=== PATIENT | female | born 1955 | race Caucasian/White ===

== ENCOUNTER 2017-05-08 20:21 | Emergency (ER) | payer BC ==
[2017-05-08 20:30] VITALS: BP 132/69
[2017-05-08] MEDS ORDERED: DOXYcycline CAP(*) 100 MG PO ONE (21:25)
--- NOTE | 2017-05-08 21:41 | UC ---
Skin Complaint HPI - HPI Summary HPI Summary: 3 DAYS OF OVERALL MALAISE AND FATIGUE. NO DIALLO OR JOINT PAIN OR MUSCLE ACHES. TODAY NOTICED A RED BULLSEYE RASH RIGHT SIDE UNDER ARM. NOTED TO HAVE FEVER HERE - 100.5. CURRENTLY ON CHEMO FOR OVARIAN CANCER FOLLOWED BY DR. MAK IN [place]. - History of Current Complaint Chief Complaint: UCSkin Time Seen by Provider: 05/08/17 21:13 Stated Complaint: TICK BITE Hx Obtained From: Patient Onset/Duration: Gradual Onset, Lasting Days, Still Present Timing: Constant Onset Severity: Moderate Current Severity: Moderate Pain Intensity: 0 Pain Scale Used: 0-10 Numeric Location: Discrete - RIGHT SIDE Character: Redness Aggravating: Nothing Alleviating: Nothing Associated Signs & Symptoms: Positive: Fever, Rash. Negative: Nausea, Vomiting , Syncope - Allergy/Home Medications Allergies/Adverse Reactions: Allergies Allergy/AdvReac Type Severity Reaction Status Date / Time No Known Allergies Allergy Verified 08/17/16 10:40 Home Medications: Home Medications Docusate Sodium [Colace] 100 mg PO 05/08/17 [History] Magnesium 500 mg PO 05/08/17 [History] Pyridoxine HCl [Vitamin B-6] 25 mg PO 05/08/17 [History] Review of Systems Constitutional: Fever, Fatigue Respiratory: Negative Cardiovascular: Negative Gastrointestinal: Negative Neurological: Negative All Other Systems Reviewed And Are Negative: Yes PMH/Surg Hx/FS Hx/Imm Hx Other Cancer History: OVARIAN CANCER - Surgical History Surgical History: Yes Surgery Procedure, Year, and Place: hysterectomy - Family History Known Family History: Positive: Hypertension - Social History Alcohol Use: Weekly Substance Use Type: None Smoking Status (MU): Never Smoked Tobacco Physical Exam Triage Information Reviewed: Yes Appearance: Well-Appearing, No Pain Distress, Well-Nourished Vital Signs: Initial Vital Signs Temp 100.5 F 05/08/17 20:24 Pulse 113 05/08/17 20:24 Resp 18 05/08/17 20:24 BP 132/69 05/08/17 20:24 Pulse Ox 99 05/08/17 20:24 Vital Signs Reviewed: Yes Eyes: Positive: Conjunctiva Clear ENT: Positive: Hearing grossly normal Neck: Positive: Supple Respiratory Exam: Normal Cardiovascular Exam: Normal Abdomen Description: Positive: Soft Musculoskeletal: Positive: No Edema Neurological: Positive: Alert Psychological: Positive: Age Appropriate Behavior Skin: Positive: rashes - 11CM X 10CM TARGET LESION RIGHT SIDE MIDAXILLARY LINE Course/Dx - Diagnoses Provider Diagnoses: LYME DISEASE/ERYTHEMA MIGRANS Discharge - Discharge Plan Condition: Stable Disposition: HOME Prescriptions: Doxycycline (Monohydrate) [Doxycycline Monohydrate] 1 cap PO BID #41 cap Patient Education Materials: Lyme Disease (ED) Referrals: Cece Donovan MD [Primary Care Provider] - If Needed Additional Instructions: LYME DISEASE: You are suspected of having Lyme disease. Further testing may be necessary to confirm the diagnosis. Lyme disease is an infection spread through the bite of a deer tick. Symptoms include rash, fever, fatigue, joint swelling, and aches. Lyme disease can be treated with antibiotics. It is important that you take the entire course of medication. Call the physician if you develop severe headache, stiff neck, paralysis or "drooping" of either side of the face, or a worsening of any other symptom. The majority of patients with early Lyme disease who receive appropriate antibiotic therapy have complete resolution of the signs and symptoms of infection within 20 days and, in one trial, erythema migrans (the rash) and its associated symptoms resolved in a mean of five to six days. Patients who are more systemically ill at the beginning of treatment may take longer to recover. Some patients have mild subjective symptoms, such as headache, musculoskeletal pain, arthralgia, or fatigue, that persist for weeks to months after treatment. These subjective findings often resolve spontaneously, usually within six months , without further antibiotic therapy; they are not due to ongoing active Lyme disease. Almost all patients who have a satisfactory response to antibiotic therapy do well over the bed bug exterminator.
== END 2017-05-08 21:41 | disposition home or self-care (01) ==
LOC: UCEAST 20:21
DX: A69.20 Lyme disease, unspecified (principal); A26.0 Cutaneous erysipeloid
CPT/HCPCS: 99212; A9270-GY; G0463

== ENCOUNTER 2017-11-15 13:56 | Inpatient (IN) | payer BC ==
--- OUTSIDE RECORDS SUMMARY | 2017-11-15 14:24 | XMS REPORT ---
:1955 External Reference #:[id number] Author Organization [facility], Address [address] [address] Phone [phone] Care Team Providers Name Role Phone Hood Vasques M.D. 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 Primary Care Physician Unavailable Payers Type Date Identification Numbers Payment Provider Subscriber Health Maintenance Policy Number: [id number] [facility] [facility] (HMO) Plan PayID: [id number] [address] [place] [address] Problems Description No Information Family History Date Family Member(s) Problem(s) Comments General Breast Cancer mother (age 83), maternal grandmother (age 85) Social History Type Date Description Comments Lives With Spouse Occupation [employer] Cigarette Use 10/24/2017 Never Smoked Cigarettes ETOH Use Occasionally consumes alcohol STD's No STD History Allergies, Adverse Reactions, Alerts Date Description Reaction Status Severity Comments 12/08/2016 Carboplatin Nausea and Vomiting, flushing/warm active Moderate 01/28/2014 NKDA inactive Medications Medication Date Status Form Strength Qnty SIG Indications Ordering Provider Losartan 09/22 Active Tablets 25mg 30tab 1 tab by W [place] s mouth MD Nate Magnesium 02/15 Active Tablets 400mg 60tab 1 by mouth s 2 x a day ANDRADE Velarde Ativan 10/25 Active Tablets 1mg 45tab 1 by mouth W [place] s every 4- MD Nate 6hr as needed nausea/anx iety/insom cale Prochlorperazine 10/22 Active Tablets 10mg 45tab 1 by mouth W [place] Male s every 6 MD Nate hours as needed nausea Alprazolam 09/27 Active Tablets 0.5mg 30tab One PO Q 6 W [place] s hours prn MD Nate anxiety. Zofran 11/15 Active Tablets 8mg 60tab 1 by mouth s every [place], 6-8hr as [employer] needed nausea Valtrex Active Tablets 500mg 42tab qod s Loratadine Active Tablets 10mg qd Stool Softener Active Capsules 100mg bid prn Aleve Active Tablets 220mg 1 bid Vitamin D3 Active Capsules [id number] 11 tab weekly x 12 weeks Multivital Active Tablets 1 qd Citracal Active Tablets ER 600-40-50 1 qd Unknown Calcium+D 24HR 0mg-mg-Un Release it Zantac Active Tablets 150mg 1-2 weekly Doxycycline 05/[address] 100mg 30tab 1 by mouth W [place] Hycl s twice a MD Nate - day 05/30 Benadryl 11/29 Hx Capsules 25mg 1Tabl 2 tablet Chemo et by mouth Patients - the the 08/26 before chemo each cycle and the morning before chemo with the dexamethas one scripted Dexamethasone 11/17 Hx Tablets 4mg 60tab 2 tablets s twice a [place], - day x 2 [employer] 08/26 days, 1 tablet twice a day x 2 days after chemothera py Sancuso 11/02 Hx Patches 3.1mg/24H 1unit place 1 R s patch on [place], - arm 24 [employer] prior to your chemothera py date as directed on week 1&2 off week 3 form completed Hydrocodone-Aceta 01/15 Hx Tablets 5-325mg 20tab 1 by mouth [place] min s every 4-6 MD Nate - hours as 04/21 pain Neulasta 12/17 Hx Solution 6mg/0.6ML 1unit use as Vincent, /2015 s directedKenisha NP - sq 24-48 04/21 hours after chemothera py Ibuprofen 11/27 Hx Tablets 600mg 40tab 1 po q6h W s prn pain MD Nate - 04/21 Vitamin B-6 11/27 Hx Tablets 100mg 1 by mouth Chemo, twice a Patients - day 04/21 Lovenox 10/28 Hx Solution 40mg/0.4M 14uni 1 sq inj. W L ts every day MD Nate - post op 12/06 for Prepopik 09/25 Hx Packet 10-3.5-12 1kit as Yonathan mg-GM-GM directed ANDRADE De - 09/26 Hydrocodone-Aceta 09/25 Hx Tablets 5-325mg 40tab 1-2 by Yonathan, s mouth ANDRADE De - every 4-6 12/16 hours needed pain Nulytely/Flavor 05/17 Hx Solution 420gm 1unit start Yonathan, Packs Rec s bowel prep ANDRADE De - at 1:00 pm 05/22 the before surgery, follow instructio ns on kit Ibuprofen 05/17 Hx Tablets 600mg 40tab 1 po q6h Zarina s prn pain ANDRADE De - 09/25 Hydrocodone/Aceta 05/17 Hx Tablets 5-325mg 40tab 1-2 po q Yonathan, s 4-6 hours ANDRADE De - prn pain 09/24 Megestrol Acetate Hx Suspension 40mg/ml 1mont 4 tsp qd Unknown /0000 h - 02/25 Ibuprofen Hx Tablets 200mg otc as Unknown 0000 needed - 02/05 Medications Administered in Office Medication Date Status Form Strength Qnty SIG Indications Ordering Provider Doxorubicin Administered Injection Chemo, Hydrochloride, 017 Patients Liposomal 10MG Doxorubicin Administered Injection Chemo, Hydrochloride, 017 Patients Liposomal 10MG Doxorubicin Administered Injection Chemo, Hydrochloride, 017 Patients Liposomal 10MG Doxorubicin Administered Injection Chemo, Hydrochloride, 017 Patients Liposomal 10MG Doxorubicin Administered Injection Chemo, Hydrochloride, 017 Patients Liposomal 10MG Doxorubicin Administered Injection Chemo, Hydrochloride, 017 Patients Liposomal 10MG Immunizations CPT Code Status Date Vaccine Lot # [id number] Given 10/07/2016 Influenza Virus Split Vaccine Vital Signs Date Vital Result Comment 10/24/2017 BP Systolic 154 mmHg BP Diastolic 73 mmHg Heart Rate 120 /min Respiratory Rate 16 /min Height 64 inches 5'4" Weight 104.00 lb O2 % BldC Oximetry 95 % BSA (Body Surface Area) 1.48 m2 BMI (Body Mass Index) 17.8 kg/m2 Height in cm's 162.6 cm Weight in kg's 47.174 10/10/2017 BP Systolic 136 mmHg BP Diastolic 77 mmHg Heart Rate 102 /min Body Temperature 97.9 F Height 64 inches 5'4" Weight 109.00 lb O2 % BldC Oximetry 98 % BSA (Body Surface Area) 1.51 m2 BMI (Body Mass Index) 18.7 kg/m2 Height in cm's 162.6 cm Weight in kg's 49.442 10/03/2017 BP Systolic 177 mmHg BP Diastolic 92 mmHg Heart Rate 100 /min Respiratory Rate 16 /min Height 64 inches 5'4" Weight 111.00 lb BSA (Body Surface Area) 1.52 m2 BMI (Body Mass Index) 19.1 kg/m2 Height in cm's 162.6 cm Weight in kg's 50.350 09/19/2017 BP Systolic 177 mmHg BP Diastolic 103 mmHg Heart Rate 96 /min Body Temperature 98.3 F Respiratory Rate 18 /min Height 64 inches 5'4" O2 % BldC Oximetry 99 % Height in cm's 162.6 cm 09/12/2017 BP Systolic 178 mmHg BP Diastolic 89 mmHg Heart Rate 93 /min Respiratory Rate 16 /min Height 64 inches 5'4" Weight 115.00 lb BSA (Body Surface Area) 1.55 m2 BMI (Body Mass Index) 19.7 kg/m2 Height in cm's 162.6 cm Weight in kg's 52.164 08/29/2017 BP Systolic 134 mmHg BP Diastolic 82 mmHg Heart Rate 104 /min Height 64 inches 5'4" O2 % BldC Oximetry 99 % Height in cm's 162.6 cm 08/22/2017 BP Systolic 170 mmHg BP Diastolic 84 mmHg Heart Rate 88 /min Respiratory Rate 16 /min Height 64 inches 5'4" Weight 121.00 lb O2 % BldC Oximetry 100 % BSA (Body Surface Area) 1.58 m2 BMI (Body Mass Index) 20.8 kg/m2 Height in cm's 162.6 cm Weight in kg's 54.886 07/22/2017 BP Systolic 142 mmHg BP Diastolic 72 mmHg Heart Rate 93 /min Respiratory Rate 16 /min Height 64 inches 5'4" Weight 124.00 lb O2 % BldC Oximetry 99 % BSA (Body Surface Area) 1.60 m2 BMI (Body Mass Index) 21.3 kg/m2 Height in cm's 162.6 cm Weight in kg's 56.246 06/22/2017 BP Systolic 122 mmHg BP Diastolic 67 mmHg Heart Rate 104 /min Respiratory Rate 16 /min Height 64 inches 5'4" Weight 127.00 lb O2 % BldC Oximetry 98 % BSA (Body Surface Area) 1.61 m2 BMI (Body Mass Index) 21.8 kg/m2 Height in cm's 162.6 cm Weight in kg's 57.607 05/23/2017 BP Systolic 143 mmHg BP Diastolic 72 mmHg Heart Rate 83 /min Body Temperature 97.4 F Height 64 inches 5'4" O2 % BldC Oximetry 100 % Height in cm's 162.6 cm 05/11/2017 BP Systolic 137 mmHg BP Diastolic 73 mmHg Heart Rate 102 /min Respiratory Rate 16 /min Height 64 inches 5'4" Weight 131.00 lb O2 % BldC Oximetry 98 % BSA (Body Surface Area) 1.63 m2 BMI (Body Mass Index) 22.5 kg/m2 Height in cm's 162.6 cm Weight in kg's 59.422 04/20/2017 BP Systolic 129 mmHg BP Diastolic 71 mmHg Heart Rate 108 /min Respiratory Rate 16 /min Height 64 inches 5'4" Weight 132.00 lb O2 % BldC Oximetry 98 % BSA (Body Surface Area) 1.64 m2 BMI (Body Mass Index) 22.7 kg/m2 Height in cm's 162.6 cm Weight in kg's 59.875 03/30/2017 BP Systolic 140 mmHg BP Diastolic 67 mmHg Heart Rate 98 /min Respiratory Rate 16 /min Height 64 inches 5'4" Weight 132.00 lb O2 % BldC Oximetry 97 % BSA (Body Surface Area) 1.64 m2 BMI (Body Mass Index) 22.7 kg/m2 Height in cm's 162.6 cm Weight in kg's 59.875 03/09/2017 BP Systolic 144 mmHg BP Diastolic 70 mmHg Heart Rate 93 /min Respiratory Rate 16 /min Height 64 inches 5'4" Weight 131.00 lb O2 % BldC Oximetry 98 % BSA (Body Surface Area) 1.63 m2 BMI (Body Mass Index) 22.5 kg/m2 Height in cm's 162.6 cm Weight in kg's 59.422 02/16/2017 BP Systolic 132 mmHg BP Diastolic 77 mmHg Heart Rate 110 /min Respiratory Rate 16 /min Height 64 inches 5'4" Weight 128.00 lb O2 % BldC Oximetry 99 % BSA (Body Surface Area) 1.62 m2 BMI (Body Mass Index) 22.0 kg/m2 Height in cm's 162.6 cm Weight in kg's 58.061 01/21/2017 BP Systolic 133 mmHg BP Diastolic 72 mmHg Heart Rate 110 /min Respiratory Rate 16 /min Height 64 inches 5'4" Weight 131.00 lb O2 % BldC Oximetry 97 % BSA (Body Surface Area) 1.63 m2 BMI (Body Mass Index) 22.5 kg/m2 Height in cm's 162.6 cm Weight in kg's 59.422 12/29/2016 BP Systolic 144 mmHg BP Diastolic 75 mmHg Heart Rate 114 /min Respiratory Rate 16 /min Height 64 inches 5'4" Weight 132.00 lb O2 % BldC Oximetry 97 % BSA (Body Surface Area) 1.64 m2 BMI (Body Mass Index) 22.7 kg/m2 Height in cm's 162.6 cm Weight in kg's 59.875 12/08/2016 BP Systolic 128 mmHg BP Diastolic 67 mmHg Heart Rate 87 /min Respiratory Rate 16 /min Height 64 inches 5'4" Weight 133.00 lb O2 % BldC Oximetry 97 % BSA (Body Surface Area) 1.64 m2 BMI (Body Mass Index) 22.8 kg/m2 Height in cm's 162.6 cm Weight in kg's 60.329 11/17/2016 BP Systolic 128 mmHg BP Diastolic 69 mmHg Heart Rate 93 /min Height 64 inches 5'4" O2 % BldC Oximetry 95 % Height in cm's 162.6 cm 11/17/2016 BP Systolic 126 mmHg BP Diastolic 72 mmHg Heart Rate 93 /min Respiratory Rate 16 /min Height 64 inches 5'4" Weight 135.00 lb O2 % BldC Oximetry 98 % BSA (Body Surface Area) 1.66 m2 BMI (Body Mass Index) 23.2 kg/m2 Height in cm's 162.6 cm Weight in kg's 61.236 10/20/2016 BP Systolic 146 mmHg BP Diastolic 65 mmHg Heart Rate 98 /min Respiratory Rate 16 /min Height 64 inches 5'4" Weight 146.00 lb BSA (Body Surface Area) 1.71 m2 BMI (Body Mass Index) 25.1 kg/m2 Height in cm's 162.6 cm Weight in kg's 66.226 09/27/2016 BP Systolic 135 mmHg BP Diastolic 75 mmHg Heart Rate 100 /min Respiratory Rate 16 /min Height 64 inches 5'4" Weight 145.00 lb BSA (Body Surface Area) 1.71 m2 BMI (Body Mass Index) 24.9 kg/m2 Height in cm's 162.6 cm Weight in kg's 65.772 06/24/2016 BP Systolic 135 mmHg BP Diastolic 69 mmHg Heart Rate 92 /min Respiratory Rate 16 /min Height 64 inches 5'4" Weight 145.00 lb BSA (Body Surface Area) 1.71 m2 BMI (Body Mass Index) 24.9 kg/m2 Height in cm's 162.6 cm Weight in kg's 65.772 06/14/2016 BP Systolic 143 mmHg BP Diastolic 71 mmHg Heart Rate 89 /min Respiratory Rate 16 /min Height 64 inches 5'4" Weight 145.00 lb BSA (Body Surface Area) 1.71 m2 BMI (Body Mass Index) 24.9 kg/m2 Height in cm's 162.6 cm Weight in kg's 65.772 02/09/2016 BP Systolic 146 mmHg BP Diastolic 74 mmHg Heart Rate 90 /min Respiratory Rate 16 /min Height 64 inches 5'4" Weight 144.00 lb BSA (Body Surface Area) 1.70 m2 BMI (Body Mass Index) 24.7 kg/m2 Height in cm's 162.6 cm Weight in kg's 65.318 10/29/2015 BP Systolic 124 mmHg BP Diastolic 61 mmHg Heart Rate 87 /min Respiratory Rate 16 /min Height 64 inches 5'4" Weight 134.00 lb BSA (Body Surface Area) 1.65 m2 BMI (Body Mass Index) 23.0 kg/m2 Height in cm's 162.6 cm Weight in kg's 60.782 07/30/2015 BP Systolic 132 mmHg BP Diastolic 75 mmHg Heart Rate 104 /min Respiratory Rate 128 /min Height 64 inches 5'4" Weight 128.00 lb BSA (Body Surface Area) 1.62 m2 BMI (Body Mass Index) 22.0 kg/m2 Height in cm's 162.6 cm Weight in kg's 58.061 05/14/2015 BP Systolic 138 mmHg BP Diastolic 73 mmHg Heart Rate 93 /min Respiratory Rate 16 /min Height 64 inches 5'4" Weight 129.00 lb BSA (Body Surface Area) 1.62 m2 BMI (Body Mass Index) 22.1 kg/m2 Height in cm's 162.6 cm Weight in kg's 58.514 04/21/2015 BP Systolic 145 mmHg BP Diastolic 59 mmHg Heart Rate 93 /min Respiratory Rate 16 /min Height 64 inches 5'4" Weight 128.00 lb BSA (Body Surface Area) 1.62 m2 BMI (Body Mass Index) 22.0 kg/m2 Height in cm's 162.6 cm Weight in kg's 58.061 03/19/2015 BP Systolic 121 mmHg BP Diastolic 60 mmHg Heart Rate 106 /min Respiratory Rate 16 /min Height 64 inches 5'4" Weight 131.00 lb O2 % BldC Oximetry 99 % BSA (Body Surface Area) 1.63 m2 BMI (Body Mass Index) 22.5 kg/m2 Height in cm's 162.6 cm Weight in kg's 59.422 02/26/2015 BP Systolic 134 mmHg BP Diastolic 67 mmHg Heart Rate 102 /min Respiratory Rate 16 /min Height 64 inches 5'4" Weight 132.00 lb O2 % BldC Oximetry 99 % BSA (Body Surface Area) 1.64 m2 BMI (Body Mass Index) 22.7 kg/m2 Height in cm's 162.6 cm Weight in kg's 59.875 02/05/2015 BP Systolic 100 mmHg BP Diastolic 57 mmHg Heart Rate 114 /min Respiratory Rate 16 /min Height 64 inches 5'4" Weight 131.00 lb O2 % BldC Oximetry 98 % BSA (Body Surface Area) 1.63 m2 BMI (Body Mass Index) 22.5 kg/m2 Height in cm's 162.6 cm Weight in kg's 59.422 01/15/2015 BP Systolic 131 mmHg BP Diastolic 55 mmHg Heart Rate 102 /min Respiratory Rate 16 /min Height 64 inches 5'4" Weight 135.00 lb O2 % BldC Oximetry 97 % BSA (Body Surface Area) 1.66 m2 BMI (Body Mass Index) 23.2 kg/m2 Height in cm's 162.6 cm Weight in kg's 61.236 12/18/2014 BP Systolic 127 mmHg BP Diastolic 56 mmHg Heart Rate 108 /min Respiratory Rate 16 /min Height 64 inches 5'4" Weight 140.00 lb O2 % BldC Oximetry 99 % BSA (Body Surface Area) 1.68 m2 BMI (Body Mass Index) 24.0 kg/m2 Height in cm's 162.6 cm Weight in kg's 63.504 11/27/2014 BP Systolic 142 mmHg BP Diastolic 47 mmHg Heart Rate 59 /min Respiratory Rate 6 /min Height 64 inches 5'4" Weight 138.00 lb O2 % BldC Oximetry 99 % BSA (Body Surface Area) 1.67 m2 BMI (Body Mass Index) 23.7 kg/m2 Height in cm's 162.6 cm Weight in kg's 62.597 10/28/2014 BP Systolic 127 mmHg BP Diastolic 64 mmHg Heart Rate 106 /min Respiratory Rate 16 /min Height 64 inches 5'4" Weight 149.00 lb BSA (Body Surface Area) 1.73 m2 BMI (Body Mass Index) 25.6 kg/m2 Height in cm's 162.6 cm Weight in kg's 67.586 09/25/2014 BP Systolic 129 mmHg BP Diastolic 83 mmHg Heart Rate 129 /min Respiratory Rate 16 /min Height 64 inches 5'4" Weight 151.00 lb BSA (Body Surface Area) 1.74 m2 BMI (Body Mass Index) 25.9 kg/m2 Height in cm's 162.6 cm Weight in kg's 68.494 02/25/2014 BP Systolic 135 mmHg BP Diastolic 66 mmHg Heart Rate 82 /min Respiratory Rate 16 /min Height 64 inches 5'4" Weight 163.00 lb BSA (Body Surface Area) 1.79 m2 BMI (Body Mass Index) 28.0 kg/m2 Height in cm's 162.6 cm Weight in kg's 73.937 01/28/2014 BP Systolic 126 mmHg BP Diastolic 55 mmHg Heart Rate 89 /min Respiratory Rate 16 /min Height 64 inches 5'4" Weight 163.00 lb BSA (Body Surface Area) 1.79 m2 BMI (Body Mass Index) 28.0 kg/m2 Height in cm's 162.6 cm Weight in kg's 73.937 Results Test Date Test Result H/L Range Note Laboratory test finding 09/27/2016 Urea Nitrogen 8 mg/dL (7-24) Creatinine 09/27/2016 Creatinine 0.61 mg/dL (0.60-1.00) GFR >60 ml/min/1.73m2 (>59) GFR ( Amer) >60 ml/min/1.73m2 (>59) GFR Interpretation <SEE NOTE> 1 Laboratory test finding 09/27/2016 CA 125 @ 225.0 U/mL High (<21.0) 2 Laboratory test finding 09/22/2016 CA 125 <pending> Laboratory test finding 06/14/2016 Urea Nitrogen 5 mg/dL Low (7-24) Creatinine 06/14/2016 Creatinine 0.58 mg/dL Low (0.60-1.00) GFR >60 ml/min/1.73m2 (>59) GFR ( Amer) >60 ml/min/1.73m2 (>59) GFR Interpretation <SEE NOTE> 3 Laboratory test finding 06/14/2016 CA 125 @ 36.8 U/mL High (<21.0) 4 Ca125 07/30/2015 CA 125 @ 5.8 U/mL (<21.0) 5 1 NORMAL KIDNEY FUNCTION OR MILD DISEASE - GFR >OR=60 CHRONIC KIDNEY DISEASE - GFR 15 - 59 RENAL FAILURE - GFR <15 Est. GFR calculation based on the MDRD study equation, which assumes a steady state for creatinine. Est. GFR should not be used for medication dosing. 2 ASSAY BY IMMUNOCHEMILUMINOMETRIC ASSAY ON THE SIEMENS IMMULITE 2000 XPi. VALUES OBTAINED WITH DIFFERENT METHODS OR KITS CANNOT BE USED INTERCHANGEABLY FOR PATIENT MONITORING. RESULTS CANNOT BE INTERPRETED ABSOLUTE EVIDENCE OF THE PRESENCE OR ABSENCE OF MALIGNANCY. THE TEST IS NOT INTERPRETABLE IN . 3 NORMAL KIDNEY FUNCTION OR MILD DISEASE - GFR >OR=60 CHRONIC KIDNEY DISEASE - GFR 15 - 59 RENAL FAILURE - GFR <15 Est. GFR calculation based on the MDRD study equation, which assumes a steady state for creatinine. Est. GFR should not be used for medication dosing. 4 ASSAY BY IMMUNOCHEMILUMINOMETRIC ASSAY ON THE SIEMENS IMMULITE 2000 XPi. VALUES OBTAINED WITH DIFFERENT METHODS OR KITS CANNOT BE USED INTERCHANGEABLY FOR PATIENT MONITORING. RESULTS CANNOT BE INTERPRETED ABSOLUTE EVIDENCE OF THE PRESENCE OR ABSENCE OF MALIGNANCY. THE TEST IS NOT INTERPRETABLE IN . 5 ASSAY BY IMMUNOCHEMILUMINOMETRIC ASSAY ON THE SIEMENS IMMULITE 2000 XPi. VALUES OBTAINED WITH DIFFERENT METHODS OR KITS CANNOT BE USED INTERCHANGEABLY FOR PATIENT MONITORING. RESULTS CANNOT BE INTERPRETED ABSOLUTE EVIDENCE OF THE PRESENCE OR ABSENCE OF MALIGNANCY. THE TEST IS NOT INTERPRETABLE IN . Procedures Date CPT Code Description Status Comment 10/10/2017 77303 Chemo Admin IV Initial Up To 1 HR /Single Completed Drug 10/10/2017 89736 IV Push Ea Addl Subsequent Completed 10/10/2017 41242 IV Hydration Each Addl Hour (Intervals Of Completed Greater Than 30 Min) 10/03/2017 45652 Chemo Admin IV Initial Up To 1 HR /Single Completed Drug 10/03/2017 91139 IV Push Ea Addl Subsequent Completed 10/03/2017 51375 IV Hydration Each Addl Hour (Intervals Of Completed Greater Than 30 Min) 09/19/2017 36377 Chemo Admin IV Initial Up To 1 HR /Single Completed Drug 09/19/2017 46915 IV Push Ea Addl Subsequent Completed 09/19/2017 52827 IV Hydration Each Addl Hour (Intervals Of Completed Greater Than 30 Min) 09/12/2017 43638 Chemo Admin IV Initial Up To 1 HR /Single Completed Drug 09/12/2017 99856 IV Push Ea Addl Subsequent Completed 09/12/2017 71569 IV Hydration Each Addl Hour (Intervals Of Completed Greater Than 30 Min) 08/29/2017 63317 IV Hydration Each Addl Hour (Intervals Of Completed Greater Than 30 Min) 08/29/2017 40330 IV Push Ea Addl Subsequent Completed 08/29/2017 00179 Chemo Admin IV Initial Up To 1 HR /Single Completed Drug 08/22/2017 53288 Chemo Admin IV Initial Up To 1 HR /Single Completed Drug 08/22/2017 59243 IV Push Ea Addl Subsequent Completed 08/22/2017 89445 IV Hydration Each Addl Hour (Intervals Of Completed Greater Than 30 Min) 07/22/2017 81867 Chemo Admin IV Initial Up To 1 HR /Single Completed Drug 07/22/2017 07779 IV Push Ea Addl Subsequent Completed 07/22/2017 70725 IV Hydration Each Addl Hour (Intervals Of Completed Greater Than 30 Min) 07/22/2017 44382 IV Hydration Each Addl Hour (Intervals Of Completed Greater Than 30 Min) 06/22/2017 70180 Chemo Admin IV Initial Up To 1 HR /Single Completed Drug 06/22/2017 66520 IV Push Ea Addl Subsequent Completed 06/22/2017 53188 IV Hydration Each Addl Hour (Intervals Of Completed Greater Than 30 Min) 05/23/2017 20234 IV Hydration Each Addl Hour (Intervals Of Completed Greater Than 30 Min) 05/23/2017 28157 IV Push Ea Addl Subsequent Completed 05/23/2017 84616 Chemo Admin IV Initial Up To 1 HR /Single Completed Drug 05/23/2017 55095 Chemo Admin IV Each Addl HR Completed 04/20/2017 60888 Chemo Admin Sequential Ea Addl HR Drug Completed [id number] 04/20/2017 44028 Chemo Admin IV Each Addl HR Completed 04/20/2017 37490 Chemo Admin IV Initial Up To 1 HR /Single Completed Drug 04/20/2017 63669 IV Push Ea Addl Subsequent Completed 04/20/2017 84039 IV Sequential Up To 1 HR New Drug Completed 04/20/2017 24484 IV Hydration Each Addl Hour (Intervals Of Completed Greater Than 30 Min) 03/30/2017 21319 IV Hydration Each Addl Hour (Intervals Of Completed Greater Than 30 Min) 03/30/2017 09418 IV Sequential Up To 1 HR New Drug Completed 03/30/2017 31336 IV Push Ea Addl Subsequent Completed 03/30/2017 95523 Chemo Admin IV Initial Up To 1 HR /Single Completed Drug 03/30/2017 78003 Chemo Admin IV Each Addl HR Completed 03/30/2017 18599 Chemo Admin Sequential Ea Addl HR Drug Completed [id number] 03/09/2017 26107 IV Hydration Each Addl Hour (Intervals Of Completed Greater Than 30 Min) 03/09/2017 78904 IV Sequential Up To 1 HR New Drug Completed 03/09/2017 90986 IV Push Ea Addl Subsequent Completed 03/09/2017 29252 Chemo Admin IV Initial Up To 1 HR /Single Completed Drug 03/09/2017 04343 Chemo Admin IV Each Addl HR Completed 03/09/2017 34269 Chemo Admin Sequential Ea Addl HR Drug Completed [id number] 02/16/2017 84091 Chemo Admin Sequential Ea Addl HR Drug Completed [id number] 02/16/2017 76101 Chemo Admin IV Each Addl HR Completed 02/16/2017 73643 Chemo Admin IV Initial Up To 1 HR /Single Completed Drug 02/16/2017 22816 IV Push Ea Addl Subsequent Completed 02/16/2017 31109 IV Sequential Up To 1 HR New Drug Completed 02/16/2017 53448 IV Hydration Each Addl Hour (Intervals Of Completed Greater Than 30 Min) 01/21/2017 72645 IV Hydration Each Addl Hour (Intervals Of Completed Greater Than 30 Min) 01/21/2017 55125 IV Sequential Up To 1 HR New Drug Completed 01/21/2017 78336 IV Push Ea Addl Subsequent Completed 01/21/2017 42361 Chemo Admin IV Initial Up To 1 HR /Single Completed Drug 12/29/2016 30160 Chemo Admin Sequential Ea Addl HR Drug Completed [id number] 12/29/2016 07857 Chemo Admin IV Each Addl HR Completed 12/29/2016 28673 Chemo Admin IV Initial Up To 1 HR /Single Completed Drug 12/29/2016 54727 IV Push Ea Addl Subsequent Completed 12/29/2016 74463 IV Sequential Up To 1 HR New Drug Completed 12/29/2016 90125 IV Hydration Each Addl Hour (Intervals Of Completed Greater Than 30 Min) 12/08/2016 88339 IV Hydration Each Addl Hour (Intervals Of Completed Greater Than 30 Min) 12/08/2016 06380 IV Sequential Up To 1 HR New Drug Completed 12/08/2016 92286 IV Push Ea Addl Subsequent Completed 12/08/2016 88885 Chemo Admin IV Initial Up To 1 HR /Single Completed Drug 12/08/2016 41333 Chemo Admin IV Each Addl HR Completed 12/08/2016 63202 Chemo Admin Sequential Ea Addl HR Drug Completed [id number] 11/17/2016 53434 Chemo Admin Sequential Ea Addl HR Drug Completed [id number] 11/17/2016 15129 Chemo Admin IV Initial Up To 1 HR /Single Completed Drug 11/17/2016 61930 IV Push Ea Addl Subsequent Completed 11/17/2016 81233 IV Sequential Up To 1 HR New Drug Completed 11/17/2016 41834 IV Hydration Each Addl Hour (Intervals Of Completed Greater Than 30 Min) 10/20/2016 10136 Chemo Admin Sequential Ea Addl HR Drug Completed [id number] 10/20/2016 86573 Chemo Admin IV Each Addl HR Completed 10/20/2016 30539 Chemo Admin IV Initial Up To 1 HR /Single Completed Drug 10/20/2016 79438 IV Push Ea Addl Subsequent Completed 10/20/2016 91308 IV Hydration Each Addl Hour (Intervals Of Completed Greater Than 30 Min) 03/19/2015 68177 IV Hydration Each Addl Hour (Intervals Of Completed Greater Than 30 Min) 03/19/2015 30524 IV Push Ea Addl Subsequent Completed 03/19/2015 21821 Chemo Admin IV Initial Up To 1 HR /Single Completed Drug 03/19/2015 71258 Chemo Admin IV Each Addl HR Completed 03/19/2015 25216 Chemo Admin Sequential Ea Addl HR Drug Completed [id number] 02/26/2015 30876 Chemo Admin Sequential Ea Addl HR Drug Completed [id number] 02/26/2015 02319 Chemo Admin IV Each Addl HR Completed 02/26/2015 97607 Chemo Admin IV Initial Up To 1 HR /Single Completed Drug 02/26/2015 12235 IV Push Ea Addl Subsequent Completed 02/26/2015 70735 IV Hydration Each Addl Hour (Intervals Of Completed Greater Than 30 Min) 02/05/2015 15250 Chemo Admin Sequential Ea Addl HR Drug Completed [id number] 02/05/2015 83795 Chemo Admin IV Each Addl HR Completed 02/05/2015 72177 Chemo Admin IV Initial Up To 1 HR /Single Completed Drug 02/05/2015 23392 IV Push Ea Addl Subsequent Completed 02/05/2015 93743 IV Hydration Each Addl Hour (Intervals Of Completed Greater Than 30 Min) 01/15/2015 27148 IV Hydration Each Addl Hour (Intervals Of Completed Greater Than 30 Min) 01/15/2015 23721 IV Push Ea Addl Subsequent Completed 01/15/2015 58198 Chemo Admin IV Initial Up To 1 HR /Single Completed Drug 01/15/2015 67611 Chemo Admin IV Each Addl HR Completed 01/15/2015 74428 Chemo Admin Sequential Ea Addl HR Drug Completed [id number] 12/18/2014 78259 Chemo Admin Sequential Ea Addl HR Drug Completed [id number] 12/18/2014 76123 Chemo Admin IV Each Addl HR Completed 12/18/2014 15713 Chemo Admin IV Initial Up To 1 HR /Single Completed Drug 12/18/2014 35472 IV Push Ea Addl Subsequent Completed 12/18/2014 52032 IV Hydration Each Addl Hour (Intervals Of Completed Greater Than 30 Min) 11/27/2014 99721 Chemo Admin Sequential Ea Addl HR Drug Completed [id number] 11/27/2014 84431 Chemo Admin IV Each Addl HR Completed 11/27/2014 78898 Chemo Admin IV Initial Up To 1 HR /Single Completed Drug 11/27/2014 64732 IV Push Ea Addl Subsequent Completed 11/27/2014 80486 IV Hydration Each Addl Hour (Intervals Of Completed Greater Than 30 Min) 10/17/2014 51357 Laparotomy For Staging Or Restaging Completed 90 DAY GLOBAL Ovarian Malignancy 09/10/2014 64101 Lap Hyster W/Tubes & Ovary Uterus Completed 90 DAY GLOBAL Over 250GM 02/15/2014 90680 LEEP Procedure Completed 90 DAY GLOBAL Encounters Type Date Location Provider CPT E/M Dx Office Visit 10/10/2017 2:00p [facility], [place] [address] R10.84 pc C54.1 Office Visit 10/03/2017 2:00p [facility], [place] [address] C54.1 C57.02 C57.01 C78.6 R97.1 Z51.11 Z01.818 Office Visit 09/12/2017 2:00p [facility], [place] [address] C54.1 C57.02 C57.01 C78.6 R97.1 R11.2 E83.42 Z01.818 Z79.899 Z51.11 Office Visit 08/22/2017 9:45a [facility], [place] [address] C57.01 pc Z01.818 C78.6 R97.1 E83.42 Office Visit 07/22/2017 2:00p [facility], M[place] Velarde, [place] [address]94 C54.1 C57.02 C57.01 C78.6 R97.1 E83.42 G62.0 Z01.818 Z79.899 Z51.11 Office Visit 05/11/2017 8:45a [facility], [place] [address] C78.6 R97.1 C57.02 C54.1 Z79.899 Office Visit 04/20/2017 8:45a [facility], Mim[place]ia Velarde, [place] [address] C57.02 pc C54.1 R97.1 G62.0 C78.6 Z01.818 Z79.899 Z51.11 Office Visit 03/30/2017 8:45a [facility], [place] Vel[place], [place] [address]30 C57.02 pc C54.1 C78.6 G62.0 R97.1 E83.42 Z01.818 Z79.899 Z51.11 Office Visit 03/09/2017 8:45a [facility], [place], [place] [address] C57.01 pc C78.6 G62.0 E83.42 R97.1 Z01.818 Z79.899 Z51.11 Office Visit 02/16/2017 8:45a [facility], [place], [employer] 91273 C57.01 pc C78.6 G62.0 Z01.818 Z79.899 Z51.11 Office Visit 01/21/2017 8:45a [facility], [employer] 84229 C57.01 pc C57.02 C54.1 C78.6 G62.0 R97.1 Z01.818 Z79.899 Z51.11 Office Visit 12/29/2016 8:45a [facility] [place], [place] Velarde, [employer] 27706 C57.02 pc C57.01 C78.6 Z01.818 Z79.899 Z51.11 R97.1 Office Visit 12/08/2016 8:45a [facility], [employer] 77879 C57.01 pc C57.02 C78.6 R11.0 Z01.818 Z79.899 Z51.11 Office Visit 11/17/2016 9:15a [facility], [employer] 64240 C57.02 pc C57.01 C78.6 R11.2 R19.7 Z01.818 Z79.899 Z51.11 Office Visit 10/20/2016 8:45a [facility], [employer] 22931 C57.01 pc C57.02 C78.6 R97.1 Z51.11 Z01.818 Z79.899 Office Visit 09/27/2016 12:30p [facility] [place], [place] [address] C57.01 pc C54.1 C78.6 R97.1 Office Visit 06/24/2016 11:00a [facility], [place] [address] C57.01 pc R97.1 Office Visit 06/14/2016 12:00p [facility] [place], [place] [address] C57.01 pc C56.2 C54.1 R97.1 Office Visit 02/09/2016 2:45p [facility] [place], [place] [address] C57.01 pc C54.1 Office Visit 10/29/2015 11:45a [facility] [place], [place] [address] C56.2 pc Office Visit 07/30/2015 12:15p [facility], [place] [address] C57.01 pc C56.2 C54.9 Office Visit 05/14/2015 3:45p [facility] [place] [address] 182.0 Office Visit 04/21/2015 3:15p [facility] [place] [address] 182.0 183.2 Office Visit 03/19/2015 9:15a [facility] [place] [address] 183.2 182.0 V58.69 Office Visit 02/26/2015 9:15a [facility] [place] [address] 183.2 V58.69 Office Visit 02/05/2015 9:15a [facility] [place] [address] 183.2 V58.69 Office Visit 01/15/2015 9:00a [facility] [place] [address] 182.0 183.2 V58.11 288.03 Office Visit 12/18/2014 9:15a [facility] [place] [address] 183.2 182.0 V58.11 795.82 V84.02 Office Visit 11/27/2014 9:30a [facility] [place] [address] 183.2 183.0 V84.02 Office Visit 11/15/2014 12:00p [facility] Chemo, Patients 50724 183.2 Office Visit 10/28/2014 9:30a [facility] [place] [address] 183.2 182.0 Office Visit 09/25/2014 12:15p [facility] [place] [address] 183.2 182.0 233.1 Office Visit 02/25/2014 10:15a [facility] [place] [address] 233.1 Office Visit 01/28/2014 10:00a [facility] [place] [address] 233.1 Plan of Care Future Appointment(s):11/01/2017 12:00 pm - Chemo, Patients at [facility]
--- OUTSIDE RECORDS SUMMARY | 2017-11-15 14:25 | XMS REPORT ---
:1955 External Reference #:[id number] Author Organization [facility], Address [address] [address] Phone [phone] Care Team Providers Name Role Phone Hood Vasques M.D. Care Team Information Quality Control Inspector Unavailable Cece Donovan M.D. Primary Care Physician Unavailable Payers Type Date Identification Numbers Payment Provider Subscriber Health Maintenance Policy Number: [id number] [facility] Richard Moncada [facility] [place] (HMO) Plan PayID: [id number] [address] [place] [address] Problems Description No Information Family History Date Family Member(s) Problem(s) Comments General Breast Cancer mother (age 83), maternal grandmother (age 85) Social History Type Date Description Comments Lives With Spouse Occupation [employer] Cigarette Use 10/03/2017 Never Smoked Cigarettes ETOH Use Occasionally consumes [...] by mouth s every [place], 6-8hr as [employer] needed nausea Valtrex Active Tablets 500mg 42tab qod s Loratadine Active Tablets 10mg qd Stool Softener Active Capsules 100mg bid prn Aleve Active Tablets 220mg 1 bid Vitamin D3 Active Capsules 04000Lrul 11 tab weekly x 12 weeks Multivital [...] twice a Volcko, - day x 2 [employer] 08/26 days, 1 tablet twice a day x 2 days after chemothera py [place] 11/02 Hx Patches 3.1mg/24H 1unit place 1 R s patch on Volcko, - arm 24 [employer] prior to your chemothera py date as [...] CPT Code Status Date Vaccine Lot # [id number] Given 10/07/2016 Influenza Virus Split Vaccine Vital Signs Date Vital Result Comment 10/10/2017 BP Systolic 136 mmHg BP Diastolic [...] CA 125 <pending> Laboratory test finding 06/14/2016 CA 125 @ 36.8 U/mL High (<21.0) 3 Creatinine 06/14/2016 Creatinine 0.58 mg/dL Low (0.60-1.00) GFR >60 ml/min/1.73m2 (>59) GFR ( Amer) >60 ml/min/1.73m2 (>59) GFR Interpretation <SEE NOTE> 4 Laboratory test finding 06/14/2016 Urea Nitrogen 5 mg/dL Low (7-24) Ca125 07/30/2015 CA 125 @ 5.8 U/mL [...] TEST IS NOT INTERPRETABLE IN . 3 ASSAY BY IMMUNOCHEMILUMINOMETRIC ASSAY ON THE SIEMENS IMMULITE 2000 XPi. VALUES OBTAINED WITH DIFFERENT METHODS OR KITS CANNOT BE USED INTERCHANGEABLY FOR PATIENT MONITORING. RESULTS CANNOT BE INTERPRETED ABSOLUTE EVIDENCE OF THE PRESENCE OR ABSENCE OF MALIGNANCY. THE TEST IS NOT INTERPRETABLE IN . 4 NORMAL KIDNEY FUNCTION OR MILD DISEASE - GFR >OR=60 CHRONIC KIDNEY DISEASE - GFR 15 - 59 RENAL FAILURE - GFR <15 Est. GFR calculation based on the MDRD study equation, which assumes a steady state for creatinine. Est. GFR should not be used for medication dosing. 5 ASSAY BY IMMUNOCHEMILUMINOMETRIC ASSAY ON THE VivebioTE 2000 XPi. VALUES OBTAINED WITH DIFFERENT METHODS OR KITS CANNOT BE USED INTERCHANGEABLY FOR PATIENT MONITORING. RESULTS CANNOT BE INTERPRETED ABSOLUTE EVIDENCE OF THE PRESENCE OR ABSENCE OF MALIGNANCY. THE TEST IS NOT INTERPRETABLE IN . Procedures Date CPT Code Description Status Comment 10/10/2017 76493 Chemo Admin IV Initial Up To 1 HR /Single Completed Drug 10/10/2017 09312 IV Push Ea Addl Subsequent Completed 10/10/2017 09934 IV Hydration Each Addl Hour (Intervals Of Completed Greater Than 30 Min) 10/03/2017 05225 Chemo Admin IV Initial Up To 1 HR /Single Completed Drug 10/03/2017 22174 IV Push Ea Addl Subsequent Completed 10/03/2017 17343 IV Hydration Each Addl Hour (Intervals Of Completed Greater Than 30 Min) 09/19/2017 82185 Chemo Admin IV Initial Up To 1 HR /Single Completed Drug 09/19/2017 83319 IV Push Ea Addl Subsequent Completed 09/19/2017 03636 IV Hydration Each Addl Hour (Intervals Of Completed Greater Than 30 Min) 09/12/2017 43693 Chemo Admin IV Initial Up To 1 HR /Single Completed Drug 09/12/2017 26820 IV Push Ea Addl Subsequent Completed 09/12/2017 18517 IV Hydration Each Addl Hour (Intervals Of Completed Greater Than 30 Min) 08/29/2017 15229 IV Hydration Each Addl Hour (Intervals Of Completed Greater Than 30 Min) 08/29/2017 36513 IV Push Ea Addl Subsequent Completed 08/29/2017 83400 Chemo Admin IV Initial Up To 1 HR /Single Completed Drug 08/22/2017 07947 Chemo Admin IV Initial Up To 1 HR /Single Completed Drug 08/22/2017 23153 IV Push Ea Addl Subsequent Completed 08/22/2017 14908 IV Hydration Each Addl Hour (Intervals Of Completed Greater Than 30 Min) 07/22/2017 96231 Chemo Admin IV Initial Up To 1 HR /Single Completed Drug 07/22/2017 90373 IV Push Ea Addl Subsequent Completed 07/22/2017 63624 IV Hydration Each Addl Hour (Intervals Of Completed Greater Than 30 Min) 07/22/2017 08586 IV Hydration Each Addl Hour (Intervals Of Completed Greater Than 30 Min) 06/22/2017 76484 Chemo Admin IV Initial Up To 1 HR /Single Completed Drug 06/22/2017 19675 IV Push Ea Addl Subsequent Completed 06/22/2017 96545 IV Hydration Each Addl Hour (Intervals Of Completed Greater Than 30 Min) 05/23/2017 24791 IV Hydration Each Addl Hour (Intervals Of Completed Greater Than 30 Min) 05/23/2017 34953 IV Push Ea Addl Subsequent Completed 05/23/2017 54742 Chemo Admin IV Initial Up To 1 HR /Single Completed Drug 05/23/2017 82154 Chemo Admin IV Each Addl HR Completed 04/20/2017 42196 Chemo Admin Sequential Ea Addl HR Drug Completed [id number]/53184 04/20/2017 36656 Chemo Admin IV Each Addl HR Completed 04/20/2017 48274 Chemo Admin IV Initial Up To 1 HR /Single Completed Drug 04/20/2017 98474 IV Push Ea Addl Subsequent Completed 04/20/2017 56054 IV Sequential Up To 1 HR New Drug Completed 04/20/2017 58208 IV Hydration Each Addl Hour (Intervals Of Completed Greater Than 30 Min) 03/30/2017 62147 IV Hydration Each Addl Hour (Intervals Of Completed Greater Than 30 Min) 03/30/2017 96950 IV Sequential Up To 1 HR New Drug Completed 03/30/2017 45616 IV Push Ea Addl Subsequent Completed 03/30/2017 07510 Chemo Admin IV Initial Up To 1 HR /Single Completed Drug 03/30/2017 43868 Chemo Admin IV Each Addl HR Completed 03/30/2017 56441 Chemo Admin Sequential Ea Addl HR Drug Completed [id number]/58577 03/09/2017 79124 IV Hydration Each Addl Hour (Intervals Of Completed Greater Than 30 Min) 03/09/2017 74365 IV Sequential Up To 1 HR New Drug Completed 03/09/2017 66286 IV Push Ea Addl Subsequent Completed 03/09/2017 68437 Chemo Admin IV Initial Up To 1 HR /Single Completed Drug 03/09/2017 95793 Chemo Admin IV Each Addl HR Completed 03/09/2017 80458 Chemo Admin Sequential Ea Addl HR Drug Completed [id number] 02/16/2017 20598 Chemo Admin Sequential Ea Addl HR Drug Completed W69262 02/16/2017 35914 Chemo Admin IV Each Addl HR Completed 02/16/2017 90472 Chemo Admin IV Initial Up To 1 HR /Single Completed Drug 02/16/2017 19788 IV Push Ea Addl Subsequent Completed 02/16/2017 26559 IV Sequential Up To 1 HR New Drug Completed 02/16/2017 63948 IV Hydration Each Addl Hour (Intervals Of Completed Greater Than 30 Min) 01/21/2017 30844 IV Hydration Each Addl Hour (Intervals Of Completed Greater Than 30 Min) 01/21/2017 55287 IV Sequential Up To 1 HR New Drug Completed 01/21/2017 33255 IV Push Ea Addl Subsequent Completed 01/21/2017 68656 Chemo Admin IV Initial Up To 1 HR /Single Completed Drug 12/29/2016 15068 Chemo Admin Sequential Ea Addl HR Drug Completed W20368 12/29/2016 16773 Chemo Admin IV Each Addl HR Completed 12/29/2016 97186 Chemo Admin IV Initial Up To 1 HR /Single Completed Drug 12/29/2016 52368 IV Push Ea Addl Subsequent Completed 12/29/2016 42050 IV Sequential Up To 1 HR New Drug Completed 12/29/2016 50457 IV Hydration Each Addl Hour (Intervals Of Completed Greater Than 30 Min) 12/08/2016 23544 IV Hydration Each Addl Hour (Intervals Of Completed Greater Than 30 Min) 12/08/2016 52321 IV Sequential Up To 1 HR New Drug Completed 12/08/2016 53523 IV Push Ea Addl Subsequent Completed 12/08/2016 49164 Chemo Admin IV Initial Up To 1 HR /Single Completed Drug 12/08/2016 06197 Chemo Admin IV Each Addl HR Completed 12/08/2016 86113 Chemo Admin Sequential Ea Addl HR Drug Completed W/58882 11/17/2016 97185 Chemo Admin Sequential Ea Addl HR Drug Completed W/83451 11/17/2016 50151 Chemo Admin IV Initial Up To 1 HR /Single Completed Drug 11/17/2016 26452 IV Push Ea Addl Subsequent Completed 11/17/2016 23357 IV Sequential Up To 1 HR New Drug Completed 11/17/2016 81079 IV Hydration Each Addl Hour (Intervals Of Completed Greater Than 30 Min) 10/20/2016 23627 Chemo Admin Sequential Ea Addl HR Drug Completed W62240 10/20/2016 77835 Chemo Admin IV Each Addl HR Completed 10/20/2016 22393 Chemo Admin IV Initial Up To 1 HR /Single Completed Drug 10/20/2016 49837 IV Push Ea Addl Subsequent Completed 10/20/2016 71222 IV Hydration Each Addl Hour (Intervals Of Completed Greater Than 30 Min) 03/19/2015 37819 IV Hydration Each Addl Hour (Intervals Of Completed Greater Than 30 Min) 03/19/2015 99623 IV Push Ea Addl Subsequent Completed 03/19/2015 10257 Chemo Admin IV Initial Up To 1 HR /Single Completed Drug 03/19/2015 64296 Chemo Admin IV Each Addl HR Completed 03/19/2015 78857 Chemo Admin Sequential Ea Addl HR Drug Completed W/45960 02/26/2015 50350 Chemo Admin Sequential Ea Addl HR Drug Completed W58487 02/26/2015 81992 Chemo Admin IV Each Addl HR Completed 02/26/2015 77164 Chemo Admin IV Initial Up To 1 HR /Single Completed Drug 02/26/2015 81383 IV Push Ea Addl Subsequent Completed 02/26/2015 22438 IV Hydration Each Addl Hour (Intervals Of Completed Greater Than 30 Min) 02/05/2015 42993 Chemo Admin Sequential Ea Addl HR Drug Completed W90156 02/05/2015 38435 Chemo Admin IV Each Addl HR Completed 02/05/2015 02193 Chemo Admin IV Initial Up To 1 HR /Single Completed Drug 02/05/2015 62032 IV Push Ea Addl Subsequent Completed 02/05/2015 49909 IV Hydration Each Addl Hour (Intervals Of Completed Greater Than 30 Min) 01/15/2015 30659 IV Hydration Each Addl Hour (Intervals Of Completed Greater Than 30 Min) 01/15/2015 65332 IV Push Ea Addl Subsequent Completed 01/15/2015 43858 Chemo Admin IV Initial Up To 1 HR /Single Completed Drug 01/15/2015 67560 Chemo Admin IV Each Addl HR Completed 01/15/2015 21694 Chemo Admin Sequential Ea Addl HR Drug Completed 08187 12/18/2014 11762 Chemo Admin Sequential Ea Addl HR Drug Completed W77319 12/18/2014 98987 Chemo Admin IV Each Addl HR Completed 12/18/2014 29580 Chemo Admin IV Initial Up To 1 HR /Single Completed Drug 12/18/2014 02831 IV Push Ea Addl Subsequent Completed 12/18/2014 02179 IV Hydration Each Addl Hour (Intervals Of Completed Greater Than 30 Min) 11/27/2014 24400 Chemo Admin Sequential Ea Addl HR Drug Completed 83099 11/27/2014 04466 Chemo Admin IV Each Addl HR Completed 11/27/2014 33038 Chemo Admin IV Initial Up To 1 HR /Single Completed Drug 11/27/2014 86427 IV Push Ea Addl Subsequent Completed 11/27/2014 97968 IV Hydration Each Addl Hour (Intervals Of Completed Greater Than 30 Min) 10/17/2014 40314 Laparotomy For Staging Or Restaging Completed 90 DAY GLOBAL Ovarian Malignancy 09/10/2014 50135 Lap Hyster W/Tubes & Ovary Uterus Completed 90 DAY GLOBAL Over 250GM 02/15/2014 21171 LEEP Procedure Completed 90 DAY GLOBAL Encounters Type Date Location Provider CPT E/M Dx Office Visit 10/10/2017 2:00p [facility] [place] [address] R10.84 pc C54.1 Office Visit 10/03/2017 2:00p [facility] [place] [place] [address] C54.1 C57.02 C57.01 C78.6 R97.1 Z51.11 Z01.818 Office Visit 09/12/2017 2:00p [facility] [place] [address] C54.1 C57.02 C57.01 C78.6 R97.1 R11.2 E83.42 Z01.818 Z79.899 Z51.11 Office Visit 08/22/2017 9:45a [facility], [place] [address] C57.01 pc Z01.818 C78.6 R97.1 E83.42 Office Visit 07/22/2017 2:00p [facility], [place] [address] C54.1 C57.02 C57.01 C78.6 R97.1 E83.42 G62.0 Z01.818 Z79.899 Z51.11 Office Visit 05/11/2017 8:45a [facility], [place] [address] C78.6 R97.1 C57.02 C54.1 Z79.899 Office Visit 04/20/2017 8:45a [facility] [place] [place] [address] C57.02 pc C54.1 R97.1 G62.0 C78.6 Z01.818 Z79.899 Z51.11 Office Visit 03/30/2017 8:45a [facility] [place] [place] [address] C57.02 pc C54.1 C78.6 G62.0 R97.1 E83.42 Z01.818 Z79.899 Z51.11 Office Visit 03/09/2017 8:45a [facility] [place] [address] C57.01 pc C78.6 G62.0 E83.42 R97.1 Z01.818 Z79.899 Z51.11 Office Visit 02/16/2017 8:45a [facility] [place] [address] C57.01 pc C78.6 G62.0 Z01.818 Z79.899 Z51.11 Office Visit 01/21/2017 8:45a [facility] [place] [address] C57.01 pc C57.02 C54.1 C78.6 G62.0 R97.1 Z01.818 Z79.899 Z51.11 Office Visit 12/29/2016 8:45a [facility], [employer]ER [address] C57.02 pc C57.01 C78.6 Z01.818 Z79.899 Z51.11 R97.1 Office Visit 12/08/2016 8:45a [facility] [place], [employer]ER [address]16[address] C57.01 pc C57.02 C78.6 R11.0 Z01.818 Z79.899 Z51.11 Office Visit 11/17/2016 9:15a [facility] [place], [employer]ER [address]132 C57.02 pc C57.01 C78.6 R11.2 R19.7 Z01.818 Z79.899 Z51.11 Office Visit 10/20/2016 8:45a [facility] [place], [place] Vel[place], [employer]ER [address]000 C57.01 pc C57.02 C78.6 R97.1 Z51.11 Z01.818 Z79.899 Office Visit 09/27/2016 12:30p [facility] [place], [place] [address] C57.01 pc C54.1 C78.6 R97.1 Office Visit 06/24/2016 11:00a [facility], [place] [address] C57.01 pc R97.1 Office Visit 06/14/2016 12:00p [facility], [place] [address] C57.01 pc C56.2 C54.1 R97.1 Office Visit 02/09/2016 2:45p [facility], [place] [address] C57.01 pc C54.1 Office Visit 10/29/2015 11:45a [facility], [place] [address] C56.2 pc Office Visit 07/30/2015 12:15p [facility], [place] [address] C57.01 pc C56.2 C54.9 Office Visit 05/14/2015 3:45p [facility] [place] [address] 182.0 Office Visit 04/21/2015 3:15p [facility] [place] [address] 182.0 183.2 Office Visit 03/19/2015 9:15a [facility] [place] [address] 183.2 182.0 V58.69 Office Visit 02/26/2015 9:15a [facility] [place] [address] 183.2 V58.69 Office Visit 02/05/2015 9:15a [facility] [place] [address] 183.2 V58.69 Office Visit 01/15/2015 9:00a [facility] [place] [address] 182.0 183.2 V58.11 288.03 Office Visit 12/18/2014 9:15a [facility] [place] [address] 183.2 182.0 V58.11 795.82 V84.02 Office Visit 11/27/2014 9:30a [facility] [place] [address] 183.2 183.0 V84.02 Office Visit 11/15/2014 12:00p [facility] Chemo, Patients 93728 183.2 Office Visit 10/28/2014 9:30a [facility] [place] [address] 183.2 182.0 Office Visit 09/25/2014 12:15p [facility] [place] [address] 183.2 182.0 233.1 Office Visit 02/25/2014 10:15a [facility] [place] [address] 233.1 Office Visit 01/28/2014 10:00a [facility] [place] [address] 233.1 Plan of Care Future Appointment(s):11/01/2017 12:00 pm - Chemo, Patients at [facility], 10/24/2017 10:45 am - Chemo, Patients at [facility], [id number] 10:45 am - Vern Sullivan MD at [facility]
[2017-11-15] MEDS ORDERED: Ondansetron INJ* 2 MG/ML VIAL IV ONE (16:13)
--- NOTE | 2017-11-15 16:28 | RAD ---
INDICATION: Substernal chest pain. COMPARISON: There are no prior studies available for comparison. TECHNIQUE: A portable view of the chest was obtained. FINDINGS: There is a central venous catheter present on the right side. The catheter tip projects over the right atrium. The heart is within normal limits in size. The lungs are clear. No pleural effusion or pneumothorax is seen. IMPRESSION: NO EVIDENCE FOR ACUTE DISEASE.
[2017-11-15 16:29] LABS: Hematocrit 33 % (35-47); Hemoglobin 10.6 g/dl (12.0-16.0); Mean Corpuscular HGB Conc 33 g/dl (31-36); Mean Corpuscular Hemoglobin 26 pg (27-31); Mean Corpuscular Volume 81 fL (80-97); Mean Platelet Volume 8 um3 (7.4-10.4); Platelet Count 463 10^3/ul (150-450); Red Blood Count 4.02 10^6/ul (4.0-5.4); Red Cell Distribution Width 22 % (10.5-15)
[2017-11-15] MEDS ORDERED: Metoprolol Tartrate IV* 1 MG/ML 5 ML VIAL IV ONE (16:32)
[2017-11-15] MEDS ORDERED: Metoprolol Tartrate IV* 1 MG/ML 5 ML VIAL ONE (16:33)
[2017-11-15] MEDS: NS 0.9% 1000 ML* 2,000 ML IV ONE ×2 (16:35→16:36)
[2017-11-15 16:45] LABS: EGFR Non-African American 148.3 (>60)
[2017-11-15 16:52] LABS: ABS Basophils 0.1 10^3/ul (0-0.2); ABS Eosinophils 0.1 10^3/ul (0-0.6); ABS Lymphocytes 0.9 10^3/ul (1.0-4.8); ABS Monocytes 1.1 10^3/ul (0-0.8); ABS Neutrophils 19.9 10^3/ul (1.5-7.7); ABS Nucleated RBC 0 10^3/ul; Eosinophil % 0.6 % (0-6); Lymphocyte % 4.1 % (25-47); Nucleated Red Blood Cells % 0
[2017-11-15] MEDS: KCL 10 MEQ/50 ML IVPREMIX* 10 MEQ/50 ML BAG IV SCH ×3 (17:28→21:36)
[2017-11-15] MEDS ORDERED: Iohexol 300* (CONTRAST) 10 ML SDV IV ONE (18:08)
--- NOTE | 2017-11-15 18:35 | RAD ---
INDICATION: Altered mental status COMPARISON: None TECHNIQUE: Noncontrast axial source images were acquired from the skull base to the vertex. The examination is limited to a minor degree due to motion artifact. Images were repeated. FINDINGS: Ventricles/sulci: The ventricles and cisterns are normal in size and configuration for age. Brain parenchyma: There is no focal parenchymal finding, evidence of intracranial mass, or intracranial mass effect. Intracranial hemorrhage:None. Extra-axial spaces: There are no abnormal extra axial fluid collections or evidence of extra-axial mass. Calvarium: There is no calvarial fracture or other calvarial abnormality. Scalp: There is no evidence of scalp or extracalvarial soft tissue abnormality. Paranasal sinuses/mastoid: The paranasal sinuses and mastoid air cells are clear. Other: None. IMPRESSION: Essentially negative noncontrast CT examination
--- NOTE | 2017-11-15 18:46 | HP ---
H&P (Free Text) History and Physical: H&P - Critical Care Requesting Physician: Dr Loja Limitations in history/physical: none HPI: 62y F pmhx of Endometrial Cancer (papillary serous Ca) metatstatic last chemo 4 weeks back; comes to ER for decreased appetite for weeks, reflux symptoms, nausea, all for weeks now. No sob/cp/dizziness/syncope/headache. No diarrhea/abd pain. She was seen by PMD today and BP was 120s. in ER BP 190-200s , tachy. She knows her cancer has spread and chemo is not effective anymore. at bedside. No recent illness or sick contacts. No resp complaints. No fever/chills. Poor po intake with some nausea at times. In ER, bp 190-200s. no fevers. Found to have Na level 118, with dec K and Chloride also. Given IVF bolus. No clear sepsis. For CT scan abd now for elevated alk phos level. Discussed with PMD on phone, she knows patient well. States patient knows the cancer cannot be treated further. She was going to explore hospice. Patient was okay in office today. She recommended palliative care could be contacted in hospital for discussions about hospice and goals of care. ROS: negative except for pertinent positives mentioned above. PMHx: Endometrial Ca metastatic. PSHx: staging ex-lap, hysterectomy total 2013, Family History: father @ 70 for sq cell ca; mother with AVR and CVA, breast Ca. Brother with sq cell Ca tonsils. Social History: Alcohol-rare, Smoking-none, Drug use-marijuana Allergies: Allergies Allergy/AdvReac Type Severity Reaction Status Date / Time No Known Allergies Allergy Verified 08/17/16 10:40 Home Medications: Calcium Citrate-Vitamin D [Citracal + D3 Maximum] 1 tab PO DAILY 11/15/17 [ History Confirmed 11/15/17] Cholecalciferol [Vitamin D3] 50,000 unit PO WEEKLY 11/15/17 [History Confirmed 11/15/17] Docusate CAP* [Colace Cap*] 100 mg PO BID PRN 11/15/17 [History Confirmed ] LORazepam TAB(*) [Ativan 1 MG TAB (*)] 1 mg PO Q6H PRN 11/15/17 [History Confirmed 11/15/17] LoraTADine TAB(NF) [Claritin 10 MG TAB(NF)] 10 mg PO DAILY 11/15/17 [History Confirmed 11/15/17] Losartan TAB* [Cozaar TAB*] 25 mg PO DAILY 11/15/17 [History Confirmed 11/15/17] Magnesium Oxide TAB* [MagOx 400 TAB*] 400 mg PO BID 11/15/17 [History Confirmed 11/15/17] Multivitamins/Minerals TAB* [Theragran/minerals TAB*] 1 tab PO DAILY 11/15/17 [ History Confirmed 11/15/17] Naproxen Sodium [Naproxen Sodium 220 mg] 220 mg PO BID PRN 11/15/17 [History Confirmed 11/15/17] Prochlorperazine TAB* [Compazine Tab*] 10 mg PO Q6H PRN 11/15/17 [History Confirmed 11/15/17] ValACYclovir (*) [Valtrex 500 mg (*)] 500 mg PO EVERY OTHER DAY 11/15/17 [ History Confirmed 11/15/17] Tele: sinus tachy Vitals: Vital Signs Temp 98 F 11/15/17 14:04 Pulse 85 11/15/17 17:00 Resp 16 11/15/17 17:00 BP 223/116 11/15/17 17:00 Pulse Ox 97 11/15/17 17:00 Intake & Output 11/14/17 11/15/17 11/15/17 18:59 06:59 18:59 Weight 105 lb O2/Vent: RA Infusions: none Current Medications: Potassium Chloride (Potassium Chloride 10 Meq/50 Ml Ivpremix*) 10 meq in 50 mls @ 50 mls/hr IV Q1H VIET Stop: 11/15/17 20:59 Last Admin: 11/15/17 17:28 Dose: 50 mls/hr Physical Exam: General: awake, alert, cachetic appearing, no distress, no diaphoresis Head: normocephalic, atraumatic HEENT: no pallor, no icterus, dry mucous membranes Neck: soft, supple, no jvd, no stridor CVS: tachycardic, regular, no murmur Resp: bilateral air entry, no rhales, no wheeze, no rhonchi, no acc muscle use Abdomen: soft, nontender, nondistended, bowel sounds present; midline incisional hernia+ Ext: pulses+, warm, no edema Skin: intact, no breakdown, no dryness Neuro: awake, alert, orientedx3, moving all extremities, no gross focal deficit Labs: Laboratory Results - last 24 hr 11/15/17 11/15/17 11/15/17 16:23 16:23 16:48 WBC 22.0 H RBC 4.02 Hgb 10.6 L Hct 33 L MCV 81 MCH 26 L MCHC 33 RDW 22 H Plt Count 463 H D MPV 8 Neut % (Auto) 90.2 H Lymph % (Auto) 4.1 L [place] % (Auto) 4.8 Eos % (Auto) 0.6 Baso % (Auto) 0.3 Absolute Neuts (auto) 19.9 H Absolute Lymphs (auto) 0.9 L Absolute Monos (auto) 1.1 H Absolute Eos (auto) 0.1 Absolute Basos (auto) 0.1 Absolute Nucleated RBC 0 Nucleated RBC % 0 Sodium 118 L* Potassium 2.8 L Chloride 77 L Carbon Dioxide 32 Anion Gap 9 BUN 18 Creatinine 0.43 L Est GFR ( Amer) 190.7 Est GFR (Non-Af Amer) 148.3 BUN/Creatinine Ratio 41.9 H Glucose 98 Lactic Acid 1.4 Calcium 8.4 L Total Bilirubin 1.80 H AST 69 H ALT 42 Alkaline Phosphatase 489 H Troponin I 0.05 H* Total Protein 5.7 L Albumin 2.7 L Globulin 3.0 Albumin/Globulin Ratio 0.9 L Imaging: Cxr 11/15 no infiltrates/effusions ct brain 11/15 - no acute process Assessment: 62y F pmhx of Endometrial Cancer (papillary serous Ca) metatstatic last chemo 4 weeks back; comes to ER for decreased appetite for weeks, reflux symptoms, nausea, all for weeks now. Found to have Na 118, elevated BP, dec K and Chl, signs of volume depletion. End-stage Ca with no further chemo, PMD discussed patient knows no further options available. -Mildly symptomatic chronic hypovolemic hyponatremia -hypokalemia -hypochloremia -Poor PO intake -Leukocytosis -elevated LFTS, r/o obstruction -hypertensive urgency, 2/2 anxiety ?? Plan: Neuro- awake, alert, not lethargic. Answering all questions. Chronic symptoms. Given 2 liters NS. Would repeat Na now and then adjust NS infusion for correction of Na and lytes. Neurochecks q4h for now. Bmp q4-6 h. fall prec. Will give small dose Xanax later if able for anxiety and sleep. Patient requesting. CVS- hypertensive, asymptomatic. Usually normal. Anxiety? Will try anxiolytic first. Then start antihypertensive like metoprolol and Norvasc. Trop borderline. EKG NSR, no st/t changes. Resp- RA, no distress. ID- afebrile. Wbc 22. LFTS mildly up. CT abd pending. r/o obstruction vs cholecystitis. Hold abx for now, not toxic appearing at all. GI- prn antimetics. PPI IV. CT abd pending to eval elevated LFTS for obstruction. Renal- Cr okay. Hyponatremia/hypokalemia/hypochloremia. Recheck BMP now. Then start NS infusion. Chronically low, will change Na by <12meq/d and <1meq/hr only. No indication for hypertonic yet. IV KCL. Heme- h/h okay. Plt okay. No bleeding. Endo- fingersticks as needed. Musculsk- bedrest Wounds- none Nutrition- regular diet as tolerated. Antiemetics prn. DVT prophylaxis: scds GI prophylaxis: ppi iv Central Line: no Arterial Line: no Avalos Cathetor: no Disposition: metastatic Ca; relatively asymptomatic. Admit to Tele, not a good candidate for ICU. Palliative care consult tomorrow. Hospitalist team to follow patient in AM. Code Status: full code; palliative care in AM Alex Bronson MD Director Of Retail Operations (Electronically Signed)
[2017-11-15] MEDS ORDERED: Ondansetron INJ* 2 MG/ML VIAL IV PRN (18:50)
--- NOTE | 2017-11-15 18:55 | RAD ---
INDICATION: Ovarian cancer COMPARISON: None TECHNIQUE: Axial source images were obtained from the hemidiaphragms to the symphysis pubis following administration of oral and intravenous contrast. 64 mL Omnipaque 300 was utilized. Coronal and sagittal reconstructed images were acquired. Lung bases: There is a small left-sided effusion. There is minor gravity dependent atelectasis in the lung bases. Liver: The liver is enlarged and heterogeneous with extensive hepatic metastasis. Gallbladder: There are no calcified gallstones. There is no evidence of wall thickening or pericholecystic fluid. Spleen: Multiple low-density splenic lesions most consistent with metastasis.. Pancreas: There is no focal pancreatic mass or ductal dilatation. Adrenal glands: There is no evidence of adrenal mass. Kidneys: The kidneys are normal in size and position. There are prompt nephrograms and there is prompt excretion bilaterally. There are no renal parenchymal masses. There is no evidence of nephrolithiasis. Adenopathy: Multiple mesenteric implants measuring up to 1.5 cm scattered throughout the abdomen and pelvis Fluid collections: Large amount of ascites. Vessels:There are no significant atherosclerotic changes involving the aorta. There is no focal aneurysm. The iliac vessels are normal in caliber. The IVC appears normal. GI tract: No obstruction. There are atonic and mildly dilated loops of small bowel in the central abdomen. Pelvic organs: Hysterectomy by surgical history. Ovaries not identified Bladder: Limited evaluation due to lack of contrast and adjacent ascites. Abdominal and pelvic soft tissues: Diffuse subcutaneous edema consistent with anasarca. Periumbilical hernia with multiple subcutaneous fluid collections. Osseous structures: There are no acute osseous findings. There is a chronic appearing L5 spondylolysis. Other: None IMPRESSION: 1. Small left-sided pleural effusion. 2. Diffuse hepatic and splenic metastasis. 3. Widespread mesenteric implants. 4. Ascites 5. Mild anasarca. 6. Fluid containing periumbilical hernias
[2017-11-15] MEDS: Metoprolol Tartrate TAB* 25 MG PO SCH (21:36)
[2017-11-15] MEDS ORDERED: hydrALAZINE IV* 20 MG/ML VIAL IV SLOW PU ONE (21:50)
[2017-11-15 21:56] LABS: Urine Appearance Clear; Urine Blood 1+ (Negative); Urine Color Yellow; Urine Ketones Trace (Negative); Urine Protein 3+(>=500 mg/dL) (Negative); Urine Specific Gravity 1.026 (1.010-1.030); Urine Urobilinogen Negative (Negative)
[2017-11-15] MEDS ORDERED: LORazepam TAB(*) 1 MG PO SCH (22:00)
[2017-11-15] MEDS ORDERED: LORazepam TAB(*) 1 MG ONE (22:44)
[2017-11-15] MEDS ORDERED: hydrALAZINE IV* 20 MG/ML VIAL ONE (22:44)
[2017-11-15 23:45] LABS: EGFR Non-African American 161.2 (>60)
[2017-11-16 00:13] LABS: EGFR Non-African American 161.2 (>60)
[2017-11-16] MEDS: Potassium Chlor TAB* 20 MEQ TAB.ER PO SCH ×2 (00:30→08:00)
[2017-11-16] MEDS: hydrALAZINE TAB* 25 MG PO PRN ×2 (01:46→09:47)
[2017-11-16 05:18] LABS: Hematocrit 33 % (35-47); Hemoglobin 10.7 g/dl (12.0-16.0); Mean Corpuscular HGB Conc 33 g/dl (31-36); Mean Corpuscular Hemoglobin 27 pg (27-31); Mean Corpuscular Volume 81 fL (80-97); Mean Platelet Volume 8 um3 (7.4-10.4); Platelet Count 446 10^3/ul (150-450); Red Blood Count 4.04 10^6/ul (4.0-5.4); Red Cell Distribution Width 22 % (10.5-15)
[2017-11-16] MEDS: Metoprolol Tartrate TAB* 25 MG PO SCH ×2 (07:55→21:24)
[2017-11-16] MEDS ORDERED: Potassium Chloride LIQUID* 20 MEQ PACKET PO SCH (09:00)
[2017-11-16] MEDS: amLODIPine TAB* 5 MG PO SCH (11:10)
--- NOTE | 2017-11-16 12:26 | PN ---
Subjective Date of Service: 11/16/17 Interval History: Pt is feeling poorly. She just noticed her R pointer and middle fingers at the tips are purple, no pain. She is milldy confused. Her states she is very weak. She wants to go home and be signed onto hospice. Objective Active Medications: Amlodipine Besylate (Norvasc Tab*) 10 mg PO DAILY [facility] Last Admin: 11/16/17 11:10 Dose: 10 mg Potassium Chloride/Sodium Chloride (Ns 0.45% Kcl 20 Meq 1000 Ml*) 1,000 mls @ 125 mls/hr IV PER RATE [facility] Lorazepam (Ativan Tab(*)) 0.5 mg PO Q8HR PRN PRN Reason: ANXIETY Metoprolol Tartrate (Lopressor Tab*) 25 mg PO BID [facility] Last Admin: 11/16/17 07:55 Dose: 25 mg Ondansetron HCl (Zofran Inj*) 4 mg IV Q4H PRN PRN Reason: NAUSEA/VOMITING Vital Signs - 8 hr 11/16/17 11/16/17 11/16/17 04:48 08:00 08:16 Temperature 97.4 F Pulse Rate 91 Respiratory 14 14 16 Rate Blood Pressure 191/100 (mmHg) O2 Sat by Pulse 99 Oximetry 11/16/17 11/16/17 08:44 11:06 Temperature 97.4 F Pulse Rate 92 Respiratory 16 Rate Blood Pressure 178/95 (mmHg) O2 Sat by Pulse 96 99 Oximetry Oxygen Devices in Use Now: None Appearance: MIddle aged chronically ill, cachectic appearing female sitting up in bed, NAD Eyes: No Scleral Icterus Ears/Nose/Mouth/Throat: Mucous Membranes Moist Respiratory: Symmetrical Chest Expansion and Respiratory Effort, Clear to Auscultation Cardiovascular: NL Sounds; No Murmurs; No JVD, - Abdominal: NL Sounds; No Tenderness; No Distention Extremities: No Clubbing, Cyanosis Skin: No Nodules or Sclerosis, - - R middle and L pointer/middle fingers cyanotic Neurological: - - mildly confused Result Diagrams: 11/16/17 04:45 11/16/17 04:45 Assess/Plan/Problems-Billing Ms Moncada is a 62 yo F who has a h/o endometrial cancer that is no longer able to be treated with chemo who presented to the ER with c/o decreased appetite, nausea and GERD symptoms for the last several weeks and was admitted for hyponatremia. - Patient Problems (1) Hyponatremia Current Visit: Yes Status: Acute Code(s): E87.1 - HYPO-OSMOLALITY AND HYPONATREMIA SNOMED Code(s): 03147386 Comment: Likely hypovolemic hyponatremia. Will continue NS with 20mEq KCl while here. Will not be following the Na level any further as the patient wants to sign on to hospice. We are trying to find out when hospice can sign the patient on. Likely home today. (2) Hypokalemia Current Visit: Yes Status: Acute Code(s): E87.6 - HYPOKALEMIA SNOMED Code( s): 62581992 Comment: Improving- will give NS with 20mEq KCl. (3) Leukocytosis Current Visit: Yes Status: Acute Code(s): D72.829 - ELEVATED WHITE BLOOD CELL COUNT, UNSPECIFIED SNOMED Code(s): 775615882 Comment: No signs of infection. No further work up. (4) Elevated LFTs Current Visit: Yes Status: Acute Code(s): R79.89 - OTHER SPECIFIED ABNORMAL FINDINGS OF BLOOD CHEMISTRY SNOMED Code(s): 486209276 Comment: I suspect secondary to her metastatic liver disease. (5) HTN (hypertension) Current Visit: Yes Status: Acute Code(s): I10 - ESSENTIAL (PRIMARY) HYPERTENSION SNOMED Code(s): 89417700 Comment: THe patient remains markedly hypertensive. Previous vitals obtained at her oncology office show she is typically normotensive. Will continue metoprolol and amlodipine for now. As she is going to be signed onto hospice will not be aggressive in lowering her BP. (6) Endometrial cancer Current Visit: Yes Status: Acute Code(s): C54.1 - MALIGNANT NEOPLASM OF ENDOMETRIUM SNOMED Code(s): 237023083 Comment: Plan is for the patient to go home and be signed on hospice. (7) DVT prophylaxis Current Visit: Yes Status: Acute Code(s): KBL6188 - SNOMED Code(s): 506267022 Comment: SCDs (8) Full code status Current Visit: Yes Status: Acute Code(s): Z78.9 - OTHER SPECIFIED HEALTH STATUS SNOMED Code(s): 628848754
[2017-11-16] MEDS: NS 0.9% w/ 20 Meq KCL 1000 ML* 1,000 ML IV SCH ×2 (12:52→21:23)
[2017-11-16] MEDS ORDERED: NS 0.45% KCl 20 Meq 1000 ML* 1,000 ML IV SCH (13:00)
[2017-11-16] MEDS ORDERED: Al Hydrox/Mg Hydrox/Simet LIQ* 30 ML UDC PO PRN ×2 (13:03→13:20)
[2017-11-16] MEDS ORDERED: Calcium Carbonate CHEW TAB* 500 MG (TUMS) PO PRN (13:03)
[2017-11-16] MEDS: Omeprazole CAP* 20 MG PO SCH ×2 (13:24→21:24)
[2017-11-16] MEDS: LORazepam TAB(*) 0.5 MG PO PRN ×2 (13:24→21:24)
[2017-11-16] MEDS: Famotidine TAB* 20 MG PO SCH (21:24)
[2017-11-17] MEDS: NS 0.9% w/ 20 Meq KCL 1000 ML* 1,000 ML IV SCH (04:20)
[2017-11-17] MEDS: Omeprazole CAP* 20 MG PO SCH (07:27)
[2017-11-17] MEDS: Metoprolol Tartrate TAB* 25 MG PO SCH (07:27)
[2017-11-17] MEDS: amLODIPine TAB* 5 MG PO SCH (07:27)
[2017-11-17] MEDS: Famotidine TAB* 20 MG PO SCH (07:27)
[2017-11-17 08:01] VITALS: BP 177/81
--- NOTE | 2017-11-17 13:52 | ED ---
Trell Pruitt Stephanie, scribed for Walter Loja MD on 11/15/17 at 1608 . Complex/Multi-Sys Presentation - HPI Summary HPI Summary: The pt is a 62 y/o F presenting to the ED with c/o sleep disturbances that began approximately 1 week ago. The pt has recently stopped her chemotherapy regimen 2 weeks ago because it was ineffective. Symptoms include gastric reflux , confusion, appetite changes (lack of appetite), nausea and weight loss. The pt denies dizziness or lightheadedness. The pt had ovarian cancer and was diagnosed with a partial intestinal blockage, multiple polyps, and a hernia. The pt reports feeling weak when she wakes up. The pt is not currently in pain but becomes nauseous when she attempts to eat. Her last BM was 3 days ago on 04/24. - History Of Current Complaint Chief Complaint: EDGeneral Time Seen by Provider: 11/15/17 15:39 Hx Obtained From: Patient, Family/Loss Prevention/Safety District Manager - Onset/Duration: Gradual Onset, Lasting Weeks - 2, Still Present Timing: Constant Associated Signs And Symptoms: Positive: Confusion, Weakness, Nausea, Decreased Oral Intake, Other - gastric reflux, lightheadedness, weight loss. Negative: Dizziness - Allergies/Home Medications Allergies/Adverse Reactions: Allergies Allergy/AdvReac Type Severity Reaction Status Date / Time No Known Allergies Allergy Verified 08/17/16 10:40 Home Medications: Home Medications Calcium Citrate-Vitamin D [Citracal + D3 Maximum] 1 tab PO DAILY 11/15/17 [ History Confirmed 11/15/17] Cholecalciferol [Vitamin D3] 50,000 unit PO WEEKLY 11/15/17 [History Confirmed 11/15/17] Docusate CAP* [Colace Cap*] 100 mg PO BID PRN 11/15/17 [History Confirmed ] LORazepam TAB(*) [Ativan 1 MG TAB (*)] 1 mg PO Q6H PRN 11/15/17 [History Confirmed 11/15/17] LoraTADine TAB(NF) [Claritin 10 MG TAB(NF)] 10 mg PO DAILY 11/15/17 [History Confirmed 11/15/17] Losartan TAB* [Cozaar TAB*] 25 mg PO DAILY 11/15/17 [History Confirmed 11/15/17] Magnesium Oxide TAB* [MagOx 400 TAB*] 400 mg PO BID 11/15/17 [History Confirmed 11/15/17] Multivitamins/Minerals TAB* [Theragran/minerals TAB*] 1 tab PO DAILY 11/15/17 [ History Confirmed 11/15/17] Naproxen Sodium [Naproxen Sodium 220 mg] 220 mg PO BID PRN 11/15/17 [History Confirmed 11/15/17] Prochlorperazine TAB* [Compazine Tab*] 10 mg PO Q6H PRN 11/15/17 [History Confirmed 11/15/17] ValACYclovir (*) [Valtrex 500 mg (*)] 500 mg PO EVERY OTHER DAY 11/15/17 [ History Confirmed 11/15/17] PMH/Surg Hx/FS Hx/Imm Hx Sensory History: Denies: Hx Legally Blind EENT History: Denies: Hx Deafness - Cancer History Cancer Type, Location and Year: ovarian - Surgical History Surgery Procedure, Year, and Place: hysterectomy Infectious Disease History: No Infectious Disease History: Denies: Traveled Outside the [place] in Last 30 Days - Family History Known Family History: Positive: Hypertension - Social History Occupation: Employed Full-time Lives: With Family Alcohol Use: Weekly Substance Use Type: Reports: Marijuana Smoking Status (MU): Never Smoked Tobacco Review of Systems Positive: Other - confusion, lack of appetite, weight loss. Negative: dizziness , lightheadedness. . Negative: Fever, Chills Negative: Erythema Negative: Sore Throat Negative: Chest Pain Negative: Shortness Of Breath, Cough Positive: Nausea, Other - gastric reflux. Negative: Abdominal Pain, Vomiting Negative: dysuria, hematuria Negative: Myalgia, Edema Negative: Rash Positive: Weakness All Other Systems Reviewed And Are Negative: Yes Physical Exam - Summary Physical Exam Summary: Constitutional: Alert. (-) Distressed, cachectic appearing. Skin: Warm, Dry HENT: Atraumatic, Dry mucus membranes Eyes: Conjunctiva normal Neck: Musculoskeletal ROM normal neck. (-) JVD, (-) Stridor, (-) Tracheal deviation Cardio: Rhythm regular, rate normal, Heart sounds normal; Intact distal pulses; The pedal pulses are 2+ and symmetric. Radial pulses are 2+ and symmetric. (-) Murmur Pulmonary/Chest wall: Effort normal. (-) Respiratory distress, (-) Wheezes, (-) Rales Abd: Soft, (-) Tenderness, (-) Distension, (-) Guarding, (-) Rebound, Ventral hernia Musculoskeletal: (-) Edema Lymph: (-) Cervical adenopathy Neuro: Alert, Oriented x3 Psych: Mood and affect Normal Triage Information Reviewed: Yes Vital Signs On Initial Exam: Initial Vitals Temp Pulse Resp BP Pulse Ox 98 F 123 18 192/96 98 11/15/17 14:04 11/15/17 14:04 11/15/17 14:04 11/15/17 14:04 11/15/17 14:04 Vital Signs Reviewed: Yes - Bartolo Coma Scale Coma Scale Total: 15 Diagnostics - Vital Signs Vital Signs Temp Pulse Resp BP Pulse Ox 11/15/17 14:04 98 F 123 18 192/96 98 - Laboratory Result Diagrams: 11/15/17 16:23 11/15/17 16:23 Lab Statement: Any lab studies that have been ordered have been reviewed, and results considered in the medical decision making process. - Radiology CXR Xray Interpretation: No Acute Changes Radiology Interpretation Completed By: Radiologist - NO EVIDENCE FOR ACUTE DISEASE. - CT Brain CT Interpretation: No Acute Changes CT Interpretation Completed By: Radiologist - Essentially negative noncontrast CT examination Abdomen/ Pelvis CT Interpretation: Positive (See Comments) CT Interpretation Completed By: Radiologist - 1. Small left-sided pleural effusion. 2. Diffuse hepatic and splenic metastasis. 3. Widespread mesenteric implants. 4. Ascites 5. Mild anasarca. 6. Fluid containing periumbilical hernias - EKG 15:45 EKG Rhythm: Sinus Tachycardia - 114 BPM EKG Interpretation: No STEMI Complex Multi-Symp Course/Dx Course Of Treatment: Likely hyponatremia and hypokalemia secondary to poor oral intake, secondary to metastasis of ovarian cancer. ED physician discussed the plan with the hospitalist, duran. Plan to transition pt to palliative care. - Diagnoses Provider Diagnoses: poor oral intake, Hyponatremia, Hypokalemia, Dehydration Discharge - Discharge Plan Condition: Stable Disposition: ADMITTED TO [facility] Referrals: Cece Donovan MD [Primary Care Provider] - The documentation as recorded by the Trell flores Stephanie accurately reflects the service I personally performed and the decisions made by , Walter Loja MD.
--- NOTE | 2017-11-17 21:35 | DS ---
DISCHARGE SUMMARY: DATE OF ADMISSION: 11/15/17 DATE OF DISCHARGE: 11/17/17 PRIMARY CARE PROVIDER: Dr. Donovan. PRINCIPAL DIAGNOSES: 1. Likely chronic hypovolemic hyponatremia - symptomatic. 2. Advanced endometrial cancer. 3. Hypokalemia. 4. Leukocytosis. SECONDARY DIAGNOSIS: 1. Hypertension. DISCHARGE MEDICATIONS: 1. Compazine 10 mg p.o. q.6 hours p.r.n. nausea. 2. Ativan 1 mg p.o. q.6 hours p.r.n. anxiety or insomnia. 3. Colace 100 mg p.o. twice daily p.r.n. constipation. 4. Amlodipine 10 mg p.o. daily (new). 5. Carafate 1 g p.o. q.6 hours p.r.n. indigestion (new). 6. Zofran ODT 4 mg p.o. q.6 hours p.r.n. nausea. 7. Prilosec 20 mg p.o. b.i.d. (new). 8. Morphine oral concentrate 5 mg p.o. q.2 hours p.r.n. pain or air hunger (new ). 9. Metoprolol tartrate 25 mg p.o. b.i.d. (new). 10. Famotidine 20 mg p.o. twice daily (new). 11. Tums 500 mg p.o. q.4 hours p.r.n. indigestion (new). 12. Maalox Plus 30 mL p.o. q.6 hours p.r.n. indigestion (new). HOSPITAL COURSE: Ms. Moncada is a 62-year-old female who has a history of endometrial cancer, who at this point has exhausted all chemotherapy options and had been at home dealing with weeks worth of indigestion, decreased appetite , and nausea. Ultimately, the patient presented for evaluation of these symptoms. The patient was found to be markedly hyponatremic with a sodium of 118. She received normal saline in the emergency room and with this, her sodium improved to 120. The patient was also hypokalemic. This was replaced and by the day prior to discharge, her potassium was up to 3.4. After a lengthy conversation between the patient and her , the patient has opted to go home with hospice. The decision was made to continue IV fluids; however, not checked any sodium levels due to comfort approach. The patient on the day of discharge does appear somewhat improved, in that she is less groggy and less confused. The patient and her understand the plan to go home and be signed on the hospice today. They are both in agreement with this. As above, the patient's sodium level at last check was 120 on 11/16/17. The patient's appetite is incredibly poor and I suspect this likely will not improve. In terms of the patient's indigestion which is her biggest complaint, we have ordered Prilosec 20 mg twice daily, Pepcid 20 mg twice daily, Maalox Plus and Tums. Additionally, we will provide prescription for Carafate in case she is having some irritation due to all of the reflux that she has been having. The patient will also have prescriptions for Ativan and morphine oral concentrate. The Ativan prescription has already been sent to the patient's and will be picked up by her . I sent a prescription for the morphine oral concentrate. On the day of discharge, the patient is hypertensive. She had been markedly hypertensive, though has been started on metoprolol tartrate 25 mg twice daily and amlodipine 10 mg daily. With this, her blood pressures have been ranging in the 160 to 170 range. I discussed with the patient's that I would not aim for any better control as it means more medications for her to have to take. At the 160 to 170 range, I think the risk of stroke is lower than where she presented with her systolics in the 190s to 200 range. PHYSICAL EXAMINATION: The patient's physical exam on the day of discharge is as follows: Blood pressure 177/81, pulse 102, respirations 14, temperature 97.2 , O2 sat 99% on room air. General: The patient is a well-developed, cachetic, chronically ill appearing female, sitting up in the bed, in no acute distress. Cardiac: Normal S1 and S2. Heart rate is mildly tachycardiac, but regular. Pulmonary: Lungs are clear anteriorly. Abdomen: Bowel sounds are present. Abdomen is soft, nontender, nondistended. There is a periumbilical hernia. Musculoskeletal: There is no cyanosis or clubbing of the digits. FOLLOWUP CONCERNS: The patient is being discharged home today, 11/17/17. ACTIVITY LEVEL: As tolerated. DIET: Regular as tolerated. CONDITION ON DISCHARGE: Guarded, but stable. The patient is going to be signed on the hospice at 09:30 this morning. [id number]/[facility] #: [id number] MTDD
== END 2017-11-17 08:55 | disposition home or self-care (01) | DRG 422 ==
LOC: ED 13:56 → MEDTELE 18:46
PROVIDERS: ADMIT Internal Medicine Critical Care Medicine; ATTEND Hospitalist
DX: E87.1 Hypo-osmolality and hyponatremia (principal); R64 Cachexia; C79.9 Secondary malignant neoplasm of unspecified site; C54.1 Malignant neoplasm of endometrium; E86.1 Hypovolemia; D72.829 Elevated white blood cell count, unspecified; Z68.1 Body mass index [BMI] 19.9 or less, adult; E87.6 Hypokalemia; I10 Essential (primary) hypertension; K30 Functional dyspepsia; F12.90 Cannabis use, unspecified, uncomplicated; I16.0 Hypertensive urgency; E87.8 Other disorders of electrolyte and fluid balance, not elsewhere classified; R40.2412 Glasgow coma scale score 13-15, at arrival to emergency department; R79.89 Other specified abnormal findings of blood chemistry; K21.9 Gastro-esophageal reflux disease without esophagitis; Z92.21 Personal history of antineoplastic chemotherapy; Z90.710 Acquired absence of both cervix and uterus; Z82.49 Family history of ischemic heart disease and other diseases of the circulatory system; Z80.3 Family history of malignant neoplasm of breast; Z80.8 Family history of malignant neoplasm of other organs or systems; Z82.3 Family history of stroke
CPT/HCPCS: 36415; 70450; 71045; 74177; 80048; 80053; 81003; 81015; 83605; 83930; 84300; 84484; 85025; 85027; 93005; 99285; A9270-GY; J0360; J1642; J2405; J3480; J3490; Q9967